=== PATIENT | male | born 1995 | race American Indian/Alaskan Native ===

== ENCOUNTER 2018-01-04 17:23 | Emergency (ER) | payer SELFPAY ==
--- NOTE | 2018-01-04 21:25 | Emergency Department Report ---
- General Chief complaint: Skin/Abscess/Foreign Body Stated complaint: BUMP ON BACK Time Seen by Provider: 01/04/18 21:17 Source: patient Mode of arrival: Ambulatory Limitations: No Limitations - History of Present Illness Initial comments: 23-year-old -[place] male comes in for complaint of bump on back that he 's noticed about 2 days. He reports that the bump is painful has not had any discharge from it. Patient has no past medical history currently takes no medications and has no known drug allergies. MD complaint: abscess/boil - Related Data Previous Rx's Medication Instructions Recorded Last Taken Type Ibuprofen 800 mg PO Q8H #30 tablet 01/04/18 Unknown Rx Sulfamethoxazole/Trimethoprim 1 each PO BID #20 tablet 01/04/18 Unknown Rx [Bactrim DS TAB] Allergies Allergy/AdvReac Type Severity Reaction Status Date / Time No Known Allergies Allergy Verified 01/04/18 20:12 Abscess Boil HPI - HPI Chief Complaint: Skin/Abscess/Foreign Body Stated Complaint: BUMP ON BACK Time Seen by Provider: 01/04/18 21:17 Home Medications: Previous Rx's Medication Instructions Recorded Last Taken Type Ibuprofen 800 mg PO Q8H #30 tablet 01/04/18 Unknown Rx Sulfamethoxazole/Trimethoprim 1 each PO BID #20 tablet 01/04/18 Unknown Rx [Bactrim DS TAB] Allergies/Adverse Reactions: Allergies Allergy/AdvReac Type Severity Reaction Status Date / Time No Known Allergies Allergy Verified 01/04/18 20:12 ED Review of Systems ROS: Stated complaint: BUMP ON BACK Other details as noted in HPI Constitutional: denies: chills, fever Eyes: denies: eye pain, eye discharge, vision change ENT: denies: ear pain, throat pain Respiratory: denies: cough, shortness of breath, wheezing Cardiovascular: denies: chest pain, palpitations Endocrine: no symptoms reported Gastrointestinal: denies: abdominal pain, nausea, diarrhea Genitourinary: denies: urgency, dysuria Musculoskeletal: denies: back pain, joint swelling, arthralgia Skin: lesions (mid back). denies: rash Neurological: denies: headache, weakness, paresthesias Psychiatric: denies: anxiety, depression Hematological/Lymphatic: denies: easy bleeding, easy bruising ED Past Medical Hx - Past Medical History Previous Medical History?: No - Surgical History Past Surgical History?: No - Social History Smoking Status: Current Every Day Smoker Substance Use Type: Marijuana - Medications Home Medications: Home Medications Medication Instructions Recorded Confirmed Last Taken Type Ibuprofen 800 mg PO Q8H #30 tablet 01/04/18 Unknown Rx Sulfamethoxazole/Trimethoprim 1 each PO BID #20 tablet 01/04/18 Unknown Rx [Bactrim DS TAB] ED Physical Exam - General Limitations: No Limitations General appearance: alert, in no apparent distress - Head Head exam: Present: atraumatic, normocephalic - Neurological Exam Neurological exam: Present: alert, oriented X3 - Psychiatric Psychiatric exam: Present: normal affect, normal mood - Skin Skin exam: Present: warm, dry, intact, other (patient has a firm painful boil to the mid right upper back. Nonfluctuant non-erythematous) ED Course Vital Signs 01/04/18 17:45 Temperature 98.6 F Pulse Rate 71 Respiratory 16 Rate Blood Pressure 126/80 O2 Sat by Pulse 100 Oximetry ED Medical Decision Making - Medical Decision Making Patient has been evaluated by this provider fast track. I discussed patient in depth that there is a boil on his back but is not ready to be incision and drained. There is no fluctuant in the middle pole is still very firm. I discussed the patient I'll place him on antibiotics he needs to apply warm compresses and return back once them bump has softened up. Patient verbalized understanding Critical care attestation.: If time is entered above; I have spent that time in minutes in the direct care of this critically ill patient, excluding procedure time. ED Disposition Clinical Impression: Boil, back Disposition: DC-01 TO HOME OR SELFCARE Is pt being admited?: No Does the pt Need Aspirin: No Condition: Stable Instructions: Furunculosis and Carbunculosis (ED) Additional Instructions: Please complete antibiotics as prescribed. Please apply warm compresses 1 boil 4 times a day. Return back to the emergency room once the boil has softened up so were able to incision and drain. Prescriptions: Ibuprofen 800 mg PO Q8H #30 tablet Sulfamethoxazole/Trimethoprim [Bactrim DS TAB] 1 each PO BID #20 tablet Referrals: LILA CHAVEZ MD [Primary Care Provider] - 3-5 Days Forms: Work/School Release Form(ED)
[2018-01-04 21:34] VITALS: BP 123/64
== END 2018-01-04 21:34 | disposition home or self-care (01) ==
LOC: ED 17:23
DX: L02.222 Furuncle of back [any part, except buttock and flank] (principal); F17.200 Nicotine dependence, unspecified, uncomplicated; F12.10 Cannabis abuse, uncomplicated
CPT/HCPCS: 99282